=== PATIENT | female | born 1970 | race Caucasian/White ===

== ENCOUNTER 2024-06-01 16:34 | Inpatient (IN) | payer OTHER ==
[2024-06-01 17:29] VITALS: BMI 27.3
[2024-06-01] MEDS ORDERED: LOPERAMIDE HCL 2 MG CAPSULE PO PRN (17:46)
[2024-06-01] MEDS ORDERED: NALOXONE (NARCAN) HCL 4 MG/0.1 ML SPRAY NS PRN (17:46)
[2024-06-01] MEDS ORDERED: BENZOCAINE/MENTHOL (CHLORASEPTIC ) LOZENGE MM PRN (17:46)
[2024-06-01] MEDS ORDERED: DICYCLOMINE HCL 10 MG CAPSULE PO PRN (17:46)
[2024-06-01] MEDS ORDERED: BENZONATATE 200 MG CAPSULE PO PRN (17:46)
[2024-06-01] MEDS ORDERED: hydrOXYzine PAMOATE 25 MG CAPSULE (FP) PO PRN (17:46)
[2024-06-01] MEDS ORDERED: IBUPROFEN 400 MG TABLET (FP) PO PRN (17:46)
[2024-06-01] MEDS ORDERED: ONDANSETRON *ODT* 4 MG TABLET SL PRN (17:46)
[2024-06-01] MEDS ORDERED: IBUPROFEN 600 MG TABLET (FP) PO PRN (17:46)
[2024-06-01] MEDS ORDERED: diazePAM 5 MG TABLET PO PRN (17:46)
[2024-06-01] MEDS ORDERED: guaiFENesin 600 MG TABLET.ER (FP) PO PRN (17:46)
[2024-06-01] MEDS ORDERED: MAG HYDROX/AL HYDROX/SIMETH 30 ML UNIT-DOSE CUP PO PRN (17:46)
[2024-06-01] MEDS: MELATONIN 5 MG TABLETS PO SCH (22:01)
[2024-06-01] MEDS: THIAMINE 100 MG TABLET PO SCH (22:01)
[2024-06-01] MEDS: METHOCARBAMOL 500 MG TABLET PO PRN (22:03)
[2024-06-01] MEDS: diazePAM 5 MG TABLET PO SCH (22:04)
[2024-06-02] MEDS: PRENATAL VITAMINS W/ FOLIC ACID TABLET (FP) PO SCH (09:54)
[2024-06-02] MEDS: MAGNESIUM HYDROX 2400MG/30ML ORAL SUSPENSION 30 ML CUP PO PRN (09:54)
[2024-06-02 10:39] LABS: HEMATOCRIT 38.3 % (32.4-45.2); HEMOGLOBIN 12.6 GM/dL (10.7-15.3); MCH 29.7 pg (25.7-33.7); MCHC 32.8 g/dl (32.0-36.0); MEAN CELL VOLUME 90.5 fl (80-96); MEAN PLT VOLUME 8.1 fl (7.5-11.1); PLATELET COUNT 255 10^3/uL (134-434); RBC 4.23 M/mm3 (3.60-5.2); WHITE BLOOD COUNT 5.8 K/mm3 (4.0-10.0)
[2024-06-02 10:45] LABS: CHLORIDE 106 mmol/L (98-107); POTASSIUM 4.1 mmol/L (3.5-5.1); SODIUM 139 mmol/L (136-145)
[2024-06-02 10:53] LABS: BLOOD UREA NITROGEN 19.8 mg/dL (7-18); SGPT/ALT 16 U/L (13-61)
[2024-06-02 10:54] LABS: GLUCOSE,RANDOM 87 mg/dL (74-106)
[2024-06-02 10:55] LABS: BILIRUBIN,TOTAL 0.4 mg/dL (0.2-1); TOT PROT 6.2 g/dl (6.4-8.2)
[2024-06-02 10:56] LABS: ALK PHOS 85 U/L (45-117); ANION GAP 3 mmol/L (4-13); CO2 31 mmol/L (21-32); CREATININE 0.6 mg/dL (0.55-1.3); SGOT/AST 13 U/L (15-37)
[2024-06-02] MEDS: LIDOCAINE 5% TOPICAL PATCH TP SCH (12:39)
[2024-06-02] MEDS: ACETAMINOPHEN 325 MG TABLET (FP) PO PRN (18:08)
[2024-06-02] MEDS: BISMUTH SUBSALICYLATE 524 MG/30 ML PO PRN (19:08)
[2024-06-02] MEDS: POLYETHYLENE GLYCOL (HEALTHYLAX) 3350 17 GM PACKET PO PRN (21:22)
[2024-06-02] MEDS: LIDOCAINE PATCH REMOVAL MC SCH (22:53)
[2024-06-03] MEDS: diazePAM 5 MG TABLET PO SCH (05:45)
[2024-06-03] MEDS: LACTULOSE 20 GM/30 ML UDC (FOR ORAL USE ONLY) PO SCH (10:16)
[2024-06-04] MEDS: diazePAM 5 MG TABLET PO SCH (05:52)
[2024-06-05] MEDS: diazePAM 5 MG TABLET PO ONE (06:09)
[2024-06-05 09:13] VITALS: BP 119/74; PULSE 110; RESP 20; TEMP 97.6
== END 2024-06-05 11:32 | disposition home or self-care (01) | DRG 774 ==
LOC: YASAS 16:34 → Y6N 21:06
PROVIDERS: ADMIT Allergy & Immunology; ATTEND Allergy & Immunology
PROC: HZ2ZZZZ Detoxification Services for Substance Abuse Treatment (ICD-10-PCS; principal; 2024-06-01)
DX: F10.230 Alcohol dependence with withdrawal, uncomplicated (principal); F14.20 Cocaine dependence, uncomplicated; F25.9 Schizoaffective disorder, unspecified; F19.280 Other psychoactive substance dependence with psychoactive substance-induced anxiety disorder; F19.24 Other psychoactive substance dependence with psychoactive substance-induced mood disorder; F90.9 Attention-deficit hyperactivity disorder, unspecified type; F31.9 Bipolar disorder, unspecified; G61.9 Inflammatory polyneuropathy, unspecified; M54.50 Low back pain, unspecified; R79.89 Other specified abnormal findings of blood chemistry; G89.29 Other chronic pain; Z62.810 Personal history of physical and sexual abuse in childhood; Z91.410 Personal history of adult physical and sexual abuse; Z63.0 Problems in relationship with spouse or partner; Z63.8 Other specified problems related to primary support group; Z59.00 Homelessness unspecified
CPT/HCPCS: 36415; 80053; 80305; 80307; 81025; 82140; 85027; 86780; 93005; 93010